=== PATIENT | female | born 1995 | race African-American/Black ===

== ENCOUNTER 2018-12-29 14:55 | Inpatient (IN) ==
[2018-12-29] MEDS ORDERED: MEPERIDINE 50 MG/1 ML VIAL IV PRN (15:43)
[2018-12-29] MEDS ORDERED: ONDANSETRON 4 MG/2 ML VIAL IV PRN (15:43)
[2018-12-29] MEDS ORDERED: LACTATED RINGERS 1,000 ML IV ONE ×2 (15:50→23:22)
[2018-12-29] MEDS ORDERED: DINOPROSTONE VAG GEL 10 MG SYRINGE VAG ONE (15:51)
[2018-12-29] MEDS: LACTATED RINGERS 1,000 ML IV SCH ×2 (16:05→19:43)
[2018-12-29 16:46] LABS: Basophils % 0.1 % (0.0-0.8); Eosinophils % 0.3 % (0.00-10.9); Hematocrit 29.4 VOL% (35.7-47.0); Hemoglobin 9.1 GM/DL (12.0-16.0); Immature Granulocytes % 0.9 %; Immature Granulocytes Absolute 0.07 #; Lymphocytes # 1.4 10*3/uL (1.4-4.0); Lymphocytes % 17.3 % (21.3-54.2); Mean Corpuscular Volume 81.9 FL (87-102); Mean Platelet Volume 10.8 FL (9.6-12.0); Monocytes % 7.6 % (1.7-12.7); Neutrophils % 73.8 % (38.7-73.9); Platelet Count 225 T/CUMM (130-400); Red Blood Count 3.59 MC/CUMM (3.8-5.5); Red Cell Distribution Width 14.4 % (9.3-17.3)
[2018-12-29 17:04] LABS: Alanine Aminotransferase 20 U/L (13-56); Albumin 2.7 G/DL (3.4-5.0); Alkaline Phosphatase 172 U/L (45-117); Aspartate Amino Transferase 17 U/L (0-37); Bilirubin,Total < 0.39 MG/DL (0.2-1.0); Blood Urea Nitrogen 7 MG/DL (7-18); Calcium 8.6 MG/DL (8.5-10.1); Glucose 92 MG/DL (74-106); Osmolality,Calculated 272.7 MOS/KG (273-304); Total Protein 6.8 G/DL (6.4-8.3); Uric Acid 3.7 MG/DL (2.6-6.0)
[2018-12-29] MEDS ORDERED: TERBUTALINE 1 MG/1 ML VIAL SUBCUT PRN (18:33)
[2018-12-29 19:24] LABS: Hypochromasia 1+; Microcytosis 1+; Polychromasia 1+
[2018-12-29 19:25] LABS: Anisocytosis Slight; Platelet Estimate Normal
[2018-12-29] MEDS: BUTORPHANOL 1 MG/ML VIAL IV PRN ×2 (20:12→23:29)
[2018-12-29] MEDS ORDERED: CITRIC ACID/SODIUM CITRATE 30 ML UDCUP PO ONE (23:22)
[2018-12-29] MEDS ORDERED: FAMOTIDINE 20 MG/2 ML VIAL IV ONE (23:22)
[2018-12-29] MEDS ORDERED: NALOXONE 0.4 MG/ML VIAL IV PRN (23:22)
[2018-12-29] MEDS ORDERED: ePHEDrine 50 MG/ML AMP IV PRN (23:22)
[2018-12-29] MEDS ORDERED: diphenhydrAMINE 50 MG/1 ML VIAL IV PRN ×2 (23:22)
[2018-12-29] MEDS ORDERED: LACTATED RINGERS 1,000 ML IV SCH (23:30)
[2018-12-29] MEDS ORDERED: fentaNYL 2 MCG/ROPIV 0.2% EPID 100 ML EPIDURAL SCH (23:30)
[2018-12-30] MEDS ORDERED: AMPICILLIN INJ 2,000 MG in SODIUM CHLORIDE 0.9% 100 ML IV ONE (02:00)
[2018-12-30] MEDS: LACTATED RINGERS 1,000 ML IV SCH (02:35)
[2018-12-30 04:40] LABS: Apearance,Urine CLEAR (Clear); Bacteria,Urine Occasional /HPF (Few); Bilirubin,Urine Negative (Negative); Blood, Urine Small mg/dL (Negative); Glucose,Urine (UA) Negative (Negative); Ketones,Urine Negative (Negative); Mucus,Urine Occasional /LPF (Occasional); Nitrite,Urine Negative (Negative); Protein,Urine Negative; RBC,Urine 15 /HPF (0-4); Squamous Epithelial Cell,Urine Occasional /HPF (0-10); Urine Color Yellow (Yellow); Urine Specific Gravity 1.017 (1.001-1.035); Urine Urobilinogen < 2.0 EU/DL (0.2-1.0); WBC,Urine 1 /HPF (0-6)
[2018-12-30] MEDS ORDERED: AMPICILLIN INJ 1,000 MG in SODIUM CHLORIDE 0.9% 100 ML IV SCH (06:00)
[2018-12-30] MEDS: OXYTOCIN/LR 20 UNIT/1,000 ML BAG IV SCH ×2 (08:56→13:35)
[2018-12-30] MEDS ORDERED: CARBOPROST TROMETHAMINE 250 MCG/ML AMP IM ONE (10:48)
[2018-12-30] MEDS ORDERED: METHYLERGONOVINE 0.2 MG/1 ML AMP ONE (10:48)
[2018-12-30] MEDS ORDERED: miSOPROStol 200 MCG TABLET ONE (10:49)
[2018-12-30 11:40] LABS: Cord Venous Blood HCO3 20.4 MMOL/L; Cord Venous Blood PCO2 58.4 MMHG; Cord Venous Blood PO2 18.3
[2018-12-30] MEDS ORDERED: oxyCODONE/ACETAMINOPHEN 5-325 MG TABLET PO PRN (14:36)
[2018-12-30] MEDS ORDERED: MEASLES/MUMPS/RUBELLA VACCINE 0.5 ML VIAL SUBCUT ONE (14:36)
[2018-12-30] MEDS ORDERED: BISACODYL 10 MG SUPP RECTAL PRN (14:36)
[2018-12-30] MEDS ORDERED: WITCH HAZEL PADS 100/JAR TOP PRN (14:36)
[2018-12-30] MEDS ORDERED: ACETAMINOPHEN 325 MG TABLET PO PRN (14:36)
[2018-12-30] MEDS ORDERED: BENZOCAINE 20%/MENTHOL 0.5% SPRAY 56 GM CAN TOP PRN (14:36)
[2018-12-30] MEDS ORDERED: LANOLIN 50% CREAM 0.3 OZ TUBE TOP PRN (14:36)
[2018-12-30] MEDS ORDERED: DIPH/TET/ACEL PERT BOOSTER VACCINE 0.5 ML VIAL IM ONE (14:36)
[2018-12-30] MEDS ORDERED: RHO(D) IMMUNE GLOBULIN 300 MCG SYRINGE IM ONE (14:36)
[2018-12-30] MEDS ORDERED: ACETAMINOPHEN/CODEINE 300-30 MG TABLET PO PRN (14:36)
[2018-12-30] MEDS ORDERED: HYDROCORTISONE 2.5% RECTAL CREAM 30 GM TUBE TOP PRN (14:36)
[2018-12-30] MEDS: DOCUSATE SODIUM 100 MG CAPSULE PO SCH (20:35)
[2018-12-30] MEDS: FERROUS SULFATE 325 MG TABLET PO SCH (20:35)
[2018-12-30] MEDS: IBUPROFEN 800 MG TABLET PO PRN (20:37)
[2018-12-30] MEDS: oxyCODONE/ACETAMINOPHEN 5-325 MG TABLET PO PRN (21:57)
[2018-12-31 05:59] LABS: Basophils % 0.2 % (0.0-0.8); Eosinophils % 0.2 % (0.00-10.9); Hematocrit 24.9 VOL% (35.7-47.0); Hemoglobin 7.8 GM/DL (12.0-16.0); Immature Granulocytes Absolute 0.12 #; Lymphocytes # 2.2 10*3/uL (1.4-4.0); Lymphocytes % 17.9 % (21.3-54.2); Mean Corpuscular HGB Conc 31.3 GM/DL (32-36); Mean Corpuscular Volume 81.9 FL (87-102); Mean Platelet Volume 10.8 FL (9.6-12.0); Neutrophils % 74.7 % (38.7-73.9); Platelet Count 170 T/CUMM (130-400); Red Blood Count 3.04 MC/CUMM (3.8-5.5); Red Cell Distribution Width 14.6 % (9.3-17.3); White Blood Count 12.1 T/CUMM (4-12)
[2018-12-31] MEDS: IBUPROFEN 800 MG TABLET PO PRN (07:53)
[2018-12-31] MEDS: FERROUS SULFATE 325 MG TABLET PO SCH ×5 (07:53→21:04)
[2018-12-31] MEDS: DOCUSATE SODIUM 100 MG CAPSULE PO SCH ×3 (07:53→21:04)
[2018-12-31] MEDS ORDERED: SODIUM CHLORIDE 0.9% 1,000 ML IV PRN (09:43)
[2018-12-31] MEDS: oxyCODONE/ACETAMINOPHEN 5-325 MG TABLET PO PRN ×2 (16:25→22:00)
[2018-12-31 18:29] LABS: Hematocrit 32.2 VOL% (35.7-47.0)
[2018-12-31 18:30] LABS: Hemoglobin 10.1 GM/DL (12.0-16.0)
[2019-01-01] MEDS: FERROUS SULFATE 325 MG TABLET PO SCH (08:04)
[2019-01-01] MEDS: DOCUSATE SODIUM 100 MG CAPSULE PO SCH (08:04)
[2019-01-01] MEDS: oxyCODONE/ACETAMINOPHEN 5-325 MG TABLET PO PRN (08:34)
[2019-01-01 12:14] VITALS: BP 137/75
== END 2019-01-01 12:35 | disposition home or self-care (01) | DRG 806 ==
LOC: N.LDOUT 14:55 → N.LD 14:56 → N.OB 12-30 14:27
PROVIDERS: ADMIT Obstetrics & Gynecology; ATTEND Obstetrics & Gynecology

== ENCOUNTER 2021-02-27 23:44 | Inpatient (IN) ==
[2021-02-27] MEDS ORDERED: ONDANSETRON 4 MG/2 ML VIAL IV PRN (23:53)
[2021-02-28] MEDS ORDERED: AMPICILLIN INJ 2,000 MG in SODIUM CHLORIDE 0.9% 100 ML IV ONE (00:12)
[2021-02-28] MEDS: LACTATED RINGERS 1,000 ML IV PRN ×2 (00:40→04:15)
[2021-02-28 00:44] LABS: Basophils % 0.1 % (0.0-0.8); Eosinophils % 0.3 % (0.00-10.9); Hematocrit 31.1 VOL% (35.7-47.0); Hemoglobin 9.6 GM/DL (12.0-16.0); Immature Granulocytes % 0.7 %; Immature Granulocytes Absolute 0.06 #; Lymphocytes # 2.1 10*3/uL (1.4-4.0); Mean Corpuscular HGB Conc 30.9 GM/DL (32-36); Mean Corpuscular Volume 82.3 FL (87-102); Mean Platelet Volume 10.4 FL (9.6-12.0); Monocytes % 5.9 % (1.7-12.7); Platelet Count 218 T/CUMM (130-400); Red Blood Count 3.78 MC/CUMM (3.8-5.5); Red Cell Distribution Width 14.8 % (9.3-17.3); White Blood Count 8.6 T/CUMM (4-12)
[2021-02-28 00:57] LABS: Albumin 2.7 G/DL (3.4-5.0); Bilirubin,Total 0.5 MG/DL (0.20-1.00); Calcium 8.8 MG/DL (8.5-10.1); Osmolality,Calculated 270.8 MOS/KG (273-304); Potassium 3.4 MMOL/L (3.5-5.1)
[2021-02-28] MEDS ORDERED: MEPERIDINE 50 MG/1 ML VIAL IV PRN (02:40)
[2021-02-28] MEDS ORDERED: BUTORPHANOL 2 MG/ML VIAL IV PRN (02:42)
[2021-02-28] MEDS ORDERED: MEPERIDINE 50 MG/1 ML VIAL ONE (02:44)
[2021-02-28] MEDS ORDERED: FAMOTIDINE 20 MG/2 ML VIAL IV ONE (04:31)
[2021-02-28] MEDS ORDERED: ONDANSETRON 4 MG/2 ML VIAL IV PRN (04:31)
[2021-02-28] MEDS ORDERED: NALOXONE 0.4 MG/ML VIAL IV PRN (04:31)
[2021-02-28] MEDS ORDERED: LACTATED RINGERS 1,000 ML IV ONE (04:31)
[2021-02-28] MEDS ORDERED: hydrOXYzine HCL 25 MG/1 ML VIAL IM PRN (04:31)
[2021-02-28] MEDS ORDERED: CITRIC ACID/SODIUM CITRATE 30 ML UDCUP PO ONE (04:31)
[2021-02-28] MEDS ORDERED: diphenhydrAMINE 50 MG/1 ML VIAL IV PRN ×2 (04:31)
[2021-02-28] MEDS ORDERED: PROMETHAZINE 25 MG/1 ML VIAL IM PRN (04:31)
[2021-02-28] MEDS: AMPICILLIN INJ 1,000 MG in SODIUM CHLORIDE 0.9% 100 ML IV SCH ×2 (04:36→08:46)
[2021-02-28] MEDS ORDERED: fentaNYL 2 MCG/ROPIV 0.2% EPID 100 ML EPIDURAL SCH (05:00)
[2021-02-28] MEDS ORDERED: TERBUTALINE 1 MG/1 ML VIAL ONE ×2 (05:50→07:57)
[2021-02-28] MEDS: ePHEDrine 50 MG/ML VIAL IV PRN ×2 (07:39→08:08)
[2021-02-28] MEDS ORDERED: miSOPROStoL 200 MCG TABLET ONE (07:44)
[2021-02-28] MEDS ORDERED: TRANEXAMIC ACID 1,000 MG/10 ML VIAL ONE (07:44)
[2021-02-28] MEDS ORDERED: OXYTOCIN/LR 20 UNIT/1,000 ML BAG IV ONE ×3 (07:45→13:50)
[2021-02-28] MEDS ORDERED: METHYLERGONOVINE 0.2 MG/1 ML AMP ONE (07:45)
[2021-02-28] MEDS ORDERED: CARBOPROST TROMETHAMINE 250 MCG/ML AMP IM ONE (07:45)
[2021-02-28] MEDS ORDERED: SODIUM CHLORIDE 0.9% 0 ML IV ONE (07:47)
[2021-02-28] MEDS ORDERED: TERBUTALINE 1 MG/1 ML VIAL SUBCUT ONE (07:59)
[2021-02-28 10:07] LABS: Cord Arterial Blood HCO3 23.3 MMOL/L
[2021-02-28 10:09] LABS: Cord Venous Blood HCO3 20.5 MMOL/L; Cord Venous Blood PCO2 46.9 MMHG; Cord Venous Blood PO2 27.9
[2021-02-28] MEDS ORDERED: ACETAMINOPHEN 325 MG TABLET PO PRN (13:47)
[2021-02-28] MEDS ORDERED: BISACODYL 10 MG SUPP RECTAL PRN (13:47)
[2021-02-28] MEDS ORDERED: BENZOCAINE 20%/MENTHOL 0.5% SPRAY 56 GM CAN TOP PRN (13:47)
[2021-02-28] MEDS ORDERED: HYDROCORTISONE 2.5% RECTAL CREAM 30 GM TUBE TOP PRN (13:47)
[2021-02-28] MEDS ORDERED: oxyCODONE/ACETAMINOPHEN 5-325 MG TABLET PO PRN (13:47)
[2021-02-28] MEDS ORDERED: WITCH HAZEL PADS 100/JAR TOP PRN (13:47)
[2021-02-28] MEDS ORDERED: MEASLES/MUMPS/RUBELLA VACCINE 0.5 ML VIAL SUBCUT ONE (13:47)
[2021-02-28] MEDS ORDERED: DIPH/TET/ACEL PERT BOOSTER VACCINE 0.5 ML VIAL IM ONE (13:47)
[2021-02-28] MEDS ORDERED: LANOLIN 50% CREAM 0.3 OZ TUBE TOP PRN (13:47)
[2021-02-28] MEDS ORDERED: RHO(D) IMMUNE GLOBULIN 300 MCG SYRINGE IM ONE (13:47)
[2021-02-28] MEDS: IBUPROFEN 800 MG TABLET PO PRN ×2 (14:50→21:14)
[2021-02-28] MEDS: FERROUS SULFATE 325 MG TABLET PO SCH (16:28)
[2021-02-28] MEDS: oxyCODONE/ACETAMINOPHEN 5-325 MG TABLET PO PRN ×2 (16:28→22:30)
[2021-02-28] MEDS: DOCUSATE SODIUM 100 MG CAPSULE PO SCH (21:14)
[2021-02-28] MEDS: POTASSIUM CHLORIDE 20 MEQ TABLET PO PRN (22:29)
[2021-03-01] MEDS: POTASSIUM CHLORIDE 20 MEQ TABLET PO PRN ×2 (00:26→02:30)
[2021-03-01] MEDS: IBUPROFEN 800 MG TABLET PO PRN ×2 (06:10→15:22)
[2021-03-01 06:30] LABS: Basophils % 0.2 % (0.0-0.8); Eosinophils % 0.3 % (0.00-10.9); Hematocrit 30.5 VOL% (35.7-47.0); Hemoglobin 9.5 GM/DL (12.0-16.0); Immature Granulocytes % 0.7 %; Immature Granulocytes Absolute 0.07 #; Lymphocytes # 2.2 10*3/uL (1.4-4.0); Lymphocytes % 22.9 % (21.3-54.2); Mean Corpuscular HGB Conc 31.1 GM/DL (32-36); Mean Platelet Volume 10.9 FL (9.6-12.0); Monocytes % 5.7 % (1.7-12.7); Neutrophils % 70.2 % (38.7-73.9); Platelet Count 199 T/CUMM (130-400); Red Blood Count 3.72 MC/CUMM (3.8-5.5); Red Cell Distribution Width 14.9 % (9.3-17.3); White Blood Count 9.7 T/CUMM (4-12)
[2021-03-01] MEDS: oxyCODONE/ACETAMINOPHEN 5-325 MG TABLET PO PRN ×2 (07:34→17:45)
[2021-03-01] MEDS: DOCUSATE SODIUM 100 MG CAPSULE PO SCH ×2 (08:47→20:17)
[2021-03-01] MEDS: FERROUS SULFATE 325 MG TABLET PO SCH ×2 (08:47→16:50)
[2021-03-01] MEDS: AMPICILLIN INJ 1,000 MG in SODIUM CHLORIDE 0.9% 100 ML IV SCH (13:13)
[2021-03-02] MEDS: oxyCODONE/ACETAMINOPHEN 5-325 MG TABLET PO PRN (02:04)
[2021-03-02] MEDS: IBUPROFEN 800 MG TABLET PO PRN (09:16)
[2021-03-02] MEDS: FERROUS SULFATE 325 MG TABLET PO SCH (09:16)
[2021-03-02] MEDS: DOCUSATE SODIUM 100 MG CAPSULE PO SCH (09:16)
[2021-03-02 10:44] VITALS: BP 116/73
== END 2021-03-02 12:30 | disposition home or self-care (01) | DRG 807 ==
LOC: N.LD 23:44 → N.OB 02-28 13:40
PROVIDERS: ADMIT Obstetrics & Gynecology; ATTEND Obstetrics & Gynecology